=== PATIENT | male | born 1960 | race Caucasian/White ===

== ENCOUNTER → 2019-04-14 | Outpatient (CLI) | payer MEDICARE ==
[~2019-04-14] MED LIST: AMOXICILLIN500 MG PO; VICODIN ES 7501 TAB PO
== END | disposition home or self-care (01) ==
LOC: LAB 09:11
DX: E78.5 Hyperlipidemia, unspecified (principal); R53.83 Other fatigue; R79.89 Other specified abnormal findings of blood chemistry

== ENCOUNTER 2019-11-22 15:51 | Emergency (ER) | payer MEDICARE ==
[~2019-11-22] VITALS: Wt 83.9 kg
[2019-11-22 17:05] LABS: BASO # 0.1 10*3/uL (0.0-0.1); EOS # 0.1 10*3/uL (0.0-0.4); EOS % 2.1 % (1.0-4.0); HEMATOCRIT 44.6 % (42.0-52.0); LYMPH # 1.5 10*3/uL (1.3-4.4); LYMPH % 22.4 % (27.0-41.0); MEAN CELL VOLUME 91.4 fl (80.0-94.0); MEAN CORPUSCULAR HGB 31.4 pg (27.0-31.0); MEAN CORPUSCULAR HGB CONC 34.3 g/dl (33.0-37.0); MEAN PLATELET VOLUME 10.5 fl (9.6-12.3); MONO # 0.9 10*3/uL (0.1-1.0); MONO % 12.9 % (3.0-9.0); NEUT # 4.1 10*3/uL (2.3-7.9); NEUT % 61.3 % (47.0-73.0); PLATELET COUNT AUTOMATED 151 10*3/uL (130-400); RED BLOOD COUNT 4.88 10*6/uL (4.50-5.90); RED CELL DISTRI WIDTH 13.1 % (0-14.5); WHITE BLOOD COUNT 6.7 10*3/uL (4.8-10.8)
[2019-11-22 17:23] LABS: ALBUMIN 3.7 gm/dl (3.1-4.5); ALKALINE PHOSPHATASE 68 U/L (45-117); BUN 16 mg/dl (7-24); CHLORIDE 102 mmol/L (98-107); CREATININE 1.26 mg/dL (0.70-1.30); POTASSIUM 3.9 mmol/L (3.5-5.1); SGOT/AST 50 IU/L (3-35); SGPT/ALT 80 U/L (12-78); SODIUM 135 mmol/L (136-145); TOTAL PROTEIN 7.8 gm/dL (6.4-8.2)
[2019-11-22] MEDS ORDERED: AUGMENTIN 875875 MG PO (20:01)
[2019-11-22] MEDS ORDERED: AUGMENTIN 875-875 MG PO (20:14)
== END 2019-11-22 20:22 | disposition home or self-care (01) ==
LOC: ED 15:51
PROVIDERS: Nurse Practitioner Family
DX: K11.20 Sialoadenitis, unspecified (principal); I10 Essential (primary) hypertension

== ENCOUNTER → 2020-05-19 | Outpatient (CLI) | payer MEDICARE, MEDICAID ==
[~2020-05-19] MED LIST changes: +AUGMENTIN 875-875 MG PO; +AUGMENTIN 875875 MG PO
== END | disposition home or self-care (01) ==
LOC: COVID19 12:14
PROVIDERS: ATTEND Internal Medicine
DX: U07.1 COVID-19 (principal)

== ENCOUNTER 2020-05-22 16:30 | Emergency (ER) | payer MEDICARE, MEDICAID ==
[~2020-05-22] VITALS: Ht 190.5 cm; Wt 124.7 kg
[2020-05-22 17:15] LABS: BASO % 0.5 % (0.0-1.0); EOS % 0.7 % (1.0-4.0); HEMATOCRIT 45.3 % (42.0-52.0); LYMPH # 1.7 10*3/uL (1.3-4.4); LYMPH % 31.6 % (27.0-41.0); MEAN CELL VOLUME 88.5 fl (80.0-94.0); MEAN CORPUSCULAR HGB 30.3 pg (27.0-31.0); MEAN CORPUSCULAR HGB CONC 34.2 g/dl (33.0-37.0); MEAN PLATELET VOLUME 10.1 fl (9.6-12.3); MONO # 0.9 10*3/uL (0.1-1.0); MONO % 16.1 % (3.0-9.0); NEUT # 2.8 10*3/uL (2.3-7.9); NEUT % 50.9 % (47.0-73.0); PLATELET COUNT AUTOMATED 149 10*3/uL (130-400); RED BLOOD COUNT 5.12 10*6/uL (4.50-5.90); RED CELL DISTRI WIDTH 12.9 % (0-14.5); WHITE BLOOD COUNT 5.5 10*3/uL (4.8-10.8)
[2020-05-22 17:26] LABS: ACT PARTIAL THROMBO TIME 25.2 SECONDS (20.0-32.1)
[2020-05-22 17:32] LABS: ALBUMIN 3.6 gm/dl (3.1-4.5); ALKALINE PHOSPHATASE 70 U/L (45-117); BUN 16 mg/dl (7-24); CHLORIDE 106 mmol/L (98-107); POTASSIUM 3.9 mmol/L (3.5-5.1); SGOT/AST 67 IU/L (3-35); SGPT/ALT 103 U/L (12-78); SODIUM 137 mmol/L (136-145); TOTAL PROTEIN 8.2 gm/dL (6.4-8.2)
[2020-05-22 17:46] LABS: TROPONIN I < 0.015 ng/ml (<0.045)
== END 2020-05-22 19:26 | disposition home or self-care (01) ==
LOC: ED 16:30
PROVIDERS: Internal Medicine
DX: U07.1 COVID-19 (principal); J18.9 Pneumonia, unspecified organism; I16.0 Hypertensive urgency; F31.9 Bipolar disorder, unspecified; Z79.899 Other long term (current) drug therapy

== ENCOUNTER 2022-05-28 14:14 | Emergency (ER) | payer OTHER, MEDICAID ==
[~2022-05-28] VITALS: Ht 190.5 cm; Wt 129.3 kg
[2022-05-28] MEDS ORDERED: NAPROXEN500 M1 PO (19:54)
[2022-05-28] MEDS ORDERED: COLCHICINE0.6 M1 PO (19:54)
== END 2022-05-28 20:27 | disposition home or self-care (01) ==
LOC: ED 14:14
DX: M10.072 Idiopathic gout, left ankle and foot (principal)

== ENCOUNTER 2023-08-27 22:01 | Inpatient (IN) | payer MEDICARE ==
[~2023-08-27] VITALS: Ht 193 cm; Wt 133.0 kg
[~2023-08-27 22:01] MED LIST changes: +COLCHICINE0.6 M1 PO; +NAPROXEN500 M1 PO
[2023-08-27 22:10] VITALS: BP 153/80
[2023-08-27] MEDS ORDERED: Ondansetron Hydrochloride 4 MG/2 ML VIAL IV ONE (22:30)
[2023-08-27] MEDS ORDERED: SODIUM CHLORIDE 0.9% 1,000 ML IV ONE (22:30)
[2023-08-27 23:14] LABS: BASO % 0.2 % (0.0-1.0); EOS # 0.1 10*3/uL (0.0-0.4); EOS % 0.7 % (1.0-4.0); LYMPH # 1.1 10*3/uL (1.3-4.4); LYMPH % 8.7 % (27.0-41.0); MEAN CELL VOLUME 91.6 fl (80.0-94.0); MEAN CORPUSCULAR HGB 30.2 pg (27.0-31.0); MEAN CORPUSCULAR HGB CONC 32.9 g/dl (33.0-37.0); MEAN PLATELET VOLUME 11.5 fl (9.6-12.3); MONO # 0.6 10*3/uL (0.1-1.0); MONO % 4.5 % (3.0-9.0); NEUT # 10.4 10*3/uL (2.3-7.9); NEUT % 85.7 % (47.0-73.0); PLATELET COUNT AUTOMATED 129 10*3/uL (130-400); RED BLOOD COUNT 5.24 10*6/uL (4.50-5.90); RED CELL DISTRI WIDTH 13.4 % (0-14.5); WHITE BLOOD COUNT 12.1 10*3/uL (4.8-10.8)
[2023-08-27 23:34] LABS: ALKALINE PHOSPHATASE 94 U/L (46-116); BUN 19 mg/dl (9-23); CHLORIDE 101 mmol/L (98-107); LIPASE 31 U/L (12-53); SGPT/ALT 46 U/L (5-49); TOTAL PROTEIN 8.2 gm/dL (6.0-8.0)
[2023-08-28] MEDS ORDERED: MORPHINE Sulfate 2 MG/ML SYR IV ONE (00:35)
[2023-08-28] MEDS ORDERED: SODIUM CHLORIDE 0.9% 1,000 ML IV ONE ×2 (01:30→16:00)
[2023-08-28] MEDS ORDERED: TAMSULOSIN HCL0.4 MG PO (02:18)
[2023-08-28] MEDS ORDERED: PANTOPRAZOLE SO20 MG PO (02:18)
[2023-08-28] MEDS ORDERED: NAPROXEN D/R500 MG PO (02:18)
[2023-08-28] MEDS ORDERED: METFORMIN XR500 MG PO (02:19)
[2023-08-28] MEDS ORDERED: MINIPRESS2 M2 PO (02:21)
[2023-08-28] MEDS ORDERED: LISINOPRIL40 MG PO (02:22)
[2023-08-28] MEDS ORDERED: OXCARBAZEPINE300 M1 PO (02:22)
[2023-08-28] MEDS ORDERED: CITALOPRAM40 MG PO (02:22)
[2023-08-28] MEDS ORDERED: HYDROCHLOROTHIA25 M1 PO (02:23)
[2023-08-28] MEDS ORDERED: JARDIANCE10 MG PO (02:23)
[2023-08-28] MEDS ORDERED: 'CLONIDINE0.1 MG PO (02:24)
[2023-08-28] MEDS ORDERED: SIMVASTATIN20 MG PO (02:25)
[2023-08-28] MEDS ORDERED: AMLODIPINE BESY10 MG PO (02:25)
[2023-08-28] MEDS ORDERED: Lopressor25 MG PO (02:25)
[2023-08-28] MEDS ORDERED: CEPHALEXIN500 M1 PO (02:26)
[2023-08-28] MEDS ORDERED: ALLEGRA ALLERGY60 M2 PO (02:26)
[2023-08-28] MEDS ORDERED: ASPIRIN ADULT L81 M1 PO (02:27)
[2023-08-28 04:34] VITALS: BP 138/79
[2023-08-28] MEDS ORDERED: ACETAMINOPHEN 650 MG SUPP R PRN (04:40)
[2023-08-28] MEDS ORDERED: MORPHINE Sulfate 2 MG/ML SYR IV PRN (04:40)
[2023-08-28] MEDS ORDERED: DEXTROSE 10 % IN WATER 250 ML IV PRN (04:40)
[2023-08-28] MEDS ORDERED: Metoclopramide Hydrochloride 10 MG/2 ML AMP IV PRN (04:50)
[2023-08-28] MEDS ORDERED: INSULIN LISPRO 1 UNIT/0.01 ML SQ SCH (07:30)
[2023-08-28 07:51] VITALS: BP 144/82
[2023-08-28] MEDS ORDERED: Enoxaparin Sodium 40 MG/0.4 ML SYR SC SCH (10:00)
[2023-08-28 11:00] VITALS: BP 161/77
[2023-08-28] MEDS ORDERED: Doxycycline Hyclate 100 MG in SODIUM CHLORIDE 0.9% 250 ML IV SCH (13:00)
[2023-08-28 16:00] VITALS: BP 145/74
[2023-08-28] MEDS ORDERED: Metoclopramide Hydrochloride 10 MG/2 ML AMP IV SCH (18:30)
[2023-08-28 20:00] VITALS: BP 133/68
[2023-08-28] MEDS ORDERED: REMERON30 M1 PO (20:49)
[2023-08-28] MEDS ORDERED: Metoclopramide Hydrochloride 5 MG TAB PO SCH (22:00)
[2023-08-28] MEDS ORDERED: SIMVASTATIN 20 MG TAB PO SCH (22:00)
[2023-08-28] MEDS ORDERED: Mirtazapine 15 MG TAB PO SCH (22:00)
[2023-08-28] MEDS ORDERED: Prazosin Hydrochloride 1 MG CAP PO SCH (22:00)
[2023-08-29] VITALS (7 sets, daily range): BP systolic 99–168; BP diastolic 47–79
[2023-08-29] MEDS ORDERED: Pantoprazole Sodium 40 MG VIAL IV SCH (06:00)
[2023-08-29] MEDS ORDERED: OZEMPIC1 MG/0.71 SQ (07:17)
[2023-08-29] MEDS ORDERED: KEFLEX 500 MG E2 CAP PO (07:18)
[2023-08-29 08:14] LABS: ALKALINE PHOSPHATASE 85 U/L (46-116); BUN 15 mg/dl (9-23); CHLORIDE 104 mmol/L (98-107); CHOLESTEROL 86 mg/dL (<200); LDL CHOLESTEROL 43 mg/dL (9-159); POTASSIUM 3.7 mmol/L (3.4-5.1); SGPT/ALT 35 U/L (5-49); TOTAL PROTEIN 7.7 gm/dL (6.0-8.0); TRIGLYCERIDES 89 mg/dl (<150)
[2023-08-29 08:30] LABS: BASO % 0.2 % (0.0-1.0); EOS # 0.2 10*3/uL (0.0-0.4)
[2023-08-29] MEDS ORDERED: Metoprolol Tartrate 25 MG TAB PO SCH (10:00)
[2023-08-29] MEDS ORDERED: amLODIPine besylate 10 MG TAB PO SCH (10:00)
[2023-08-29] MEDS ORDERED: Cholecalciferol 2,000 UNIT TABLET (50 MCG) PO SCH (10:00)
[2023-08-29] MEDS ORDERED: EMPAGLIFLOZIN 10 MG TABLET PO SCH (10:00)
[2023-08-29] MEDS ORDERED: CITALOPRAM 20 MG TAB PO SCH (10:00)
[2023-08-29] MEDS ORDERED: cloNIDine Hydrochloride 0.1 MG TAB PO SCH (10:00)
[2023-08-29] MEDS ORDERED: ASPIRIN, CHEWABLE 81 MG TAB PO SCH (10:00)
[2023-08-29] MEDS ORDERED: Tamsulosin Hydrochloride 0.4 MG CAP PO SCH (10:00)
[2023-08-29 10:03] LABS: EOS % 1.7 % (1.0-4.0); HEMATOCRIT 44.5 % (42.0-52.0); LYMPH # 1.3 10*3/uL (1.3-4.4); LYMPH % 13.2 % (27.0-41.0); MEAN CELL VOLUME 92.5 fl (80.0-94.0); MEAN CORPUSCULAR HGB 30.6 pg (27.0-31.0); MEAN PLATELET VOLUME 10.6 fl (9.6-12.3); MONO # 0.7 10*3/uL (0.1-1.0); MONO % 7.3 % (3.0-9.0); NEUT # 7.9 10*3/uL (2.3-7.9); NEUT % 77.3 % (47.0-73.0); PLATELET COUNT AUTOMATED 156 10*3/uL (130-400); RED BLOOD COUNT 4.81 10*6/uL (4.50-5.90); RED CELL DISTRI WIDTH 13.6 % (0-14.5); WHITE BLOOD COUNT 10.2 10*3/uL (4.8-10.8)
[2023-08-29] MEDS ORDERED: Metoclopramide Hydrochloride 5 MG TAB PO SCH (14:00)
[2023-08-29] MEDS ORDERED: ACETAMINOPHEN 325 MG TAB PO PRN (15:20)
[2023-08-29] MEDS ORDERED: SODIUM CHLORIDE 0.9% 1,000 ML IV ONE (17:45)
[2023-08-30] VITALS: BP 127/62
[2023-08-30 06:05] LABS: HEMATOCRIT 42.6 % (42.0-52.0); MEAN CORPUSCULAR HGB 30.7 pg (27.0-31.0); MEAN CORPUSCULAR HGB CONC 33.3 g/dl (33.0-37.0); MEAN PLATELET VOLUME 10.4 fl (9.6-12.3); RED BLOOD COUNT 4.63 10*6/uL (4.50-5.90); RED CELL DISTRI WIDTH 13.4 % (0-14.5); WHITE BLOOD COUNT 9.5 10*3/uL (4.8-10.8)
[2023-08-30 06:20] LABS: BUN 8 mg/dl (9-23); CHLORIDE 104 mmol/L (98-107); POTASSIUM 3.5 mmol/L (3.4-5.1)
[2023-08-30 07:36] LABS: MANUAL DIFF REFLEX YES; PLATELET COUNT AUTOMATED 141 10*3/uL (130-400)
[2023-08-30 07:42] LABS: BASOPHILS 1 % (0-1); PLATELET SUFFICIENCY NORMAL (NORMAL); TOTAL CELLS COUNTED 100 #CELLS
[2023-08-30 08:00] VITALS: BP 152/76
[2023-08-30 12:00] VITALS: BP 163/79
[2023-08-30 16:00] VITALS: BP 110/51
[2023-08-30 20:00] VITALS: BP 168/78
[2023-08-30] MEDS ORDERED: Acetaminophen/Hydrocodone 5 MG/325 MG TABLET PO PRN (22:20)
[2023-08-31] VITALS: BP 140/78
[2023-08-31 08:00] VITALS: BP 150/85
[2023-08-31] MEDS ORDERED: Piperacillin Sodium/Tazobact 50 ML IV SCH (08:00)
[2023-08-31 08:05] LABS: HEMATOCRIT 44.6 % (42.0-52.0); MEAN CELL VOLUME 91.4 fl (80.0-94.0); MEAN CORPUSCULAR HGB 30.3 pg (27.0-31.0); MEAN CORPUSCULAR HGB CONC 33.2 g/dl (33.0-37.0); MEAN PLATELET VOLUME 11.5 fl (9.6-12.3); RED BLOOD COUNT 4.88 10*6/uL (4.50-5.90); RED CELL DISTRI WIDTH 13.3 % (0-14.5); WHITE BLOOD COUNT 8.9 10*3/uL (4.8-10.8)
[2023-08-31 08:41] LABS: BUN 9 mg/dl (9-23); CHLORIDE 102 mmol/L (98-107); POTASSIUM 3.5 mmol/L (3.4-5.1)
[2023-08-31 09:07] LABS: MANUAL DIFF REFLEX YES; PLATELET COUNT AUTOMATED 131 10*3/uL (130-400)
[2023-08-31 09:10] LABS: ATYPICAL LYMPHS 2 % (0-0); PLATELET SUFFICIENCY NORMAL (NORMAL); TOTAL CELLS COUNTED 100 #CELLS
[2023-08-31] MEDS ORDERED: VANCOMYCIN/WATER FOR INJ (PEG) 400 ML IV SCH (10:00)
[2023-08-31 12:00] VITALS: BP 148/77
[2023-08-31 16:00] VITALS: BP 144/80
[2023-08-31 20:00] VITALS: BP 134/74
[2023-09-01] VITALS (8 sets, daily range): BP systolic 128–170; BP diastolic 57–89
[2023-09-01 06:27] LABS: HEMATOCRIT 41.9 % (42.0-52.0); MEAN CELL VOLUME 91.1 fl (80.0-94.0); MEAN CORPUSCULAR HGB 30.4 pg (27.0-31.0); MEAN CORPUSCULAR HGB CONC 33.4 g/dl (33.0-37.0); MEAN PLATELET VOLUME 11.3 fl (9.6-12.3); RED CELL DISTRI WIDTH 13.4 % (0-14.5); WHITE BLOOD COUNT 11.1 10*3/uL (4.8-10.8)
[2023-09-01 06:32] LABS: MANUAL DIFF REFLEX YES; PLATELET COUNT AUTOMATED 158 10*3/uL (130-400)
[2023-09-01 06:57] LABS: BUN 9 mg/dl (9-23); CHLORIDE 106 mmol/L (98-107); POTASSIUM 3.3 mmol/L (3.4-5.1)
[2023-09-01 07:12] LABS: BURR CELLS FEW; PLATELET SUFFICIENCY NORMAL (NORMAL); POLYCHROMASIA SLIGHT; TOTAL CELLS COUNTED 100 #CELLS
[2023-09-01] MEDS ORDERED: CITALOPRAM 20 MG TAB PO SCH (10:00)
[2023-09-01] MEDS ORDERED: POTASSIUM CHLORIDE IN WATER 100 ML IV SCH (10:00)
[2023-09-01] MEDS ORDERED: PROPOFOL 200 MG/20 ML VIAL IV ONE (10:46)
[2023-09-01] MEDS ORDERED: SODIUM CHLORIDE 0.9% 500 ML IV ONE (10:50)
[2023-09-01] MEDS ORDERED: VANCOMYCIN/WATER FOR INJ (PEG) 400 ML IV SCH (16:00)
[2023-09-01] MEDS ORDERED: predniSONE 20 MG TAB PO SCH (18:00)
[2023-09-01] MEDS ORDERED: POTASSIUM CHLORIDE IN WATER 100 ML IV ONE (21:10)
[2023-09-02] VITALS: BP 134/69
[2023-09-02 06:22] LABS: BASO % 0.2 % (0.0-1.0); LYMPH % 8.7 % (27.0-41.0); MEAN CELL VOLUME 92.1 fl (80.0-94.0); MEAN CORPUSCULAR HGB 30.4 pg (27.0-31.0); MEAN PLATELET VOLUME 11.3 fl (9.6-12.3); MONO # 0.5 10*3/uL (0.1-1.0); MONO % 4.7 % (3.0-9.0); NEUT # 9.6 10*3/uL (2.3-7.9); PLATELET COUNT AUTOMATED 126 10*3/uL (130-400); RED BLOOD COUNT 4.67 10*6/uL (4.50-5.90); RED CELL DISTRI WIDTH 13.6 % (0-14.5); WHITE BLOOD COUNT 11.2 10*3/uL (4.8-10.8)
[2023-09-02 06:53] LABS: ALKALINE PHOSPHATASE 65 U/L (46-116); BUN 12 mg/dl (9-23); CHLORIDE 106 mmol/L (98-107); POTASSIUM 3.9 mmol/L (3.4-5.1); SGPT/ALT 22 U/L (5-49); TOTAL PROTEIN 7.8 gm/dL (6.0-8.0); URIC ACID 3.3 mg/dL (3.7-9.2)
[2023-09-02 08:00] VITALS: BP 143/70
[2023-09-02] MEDS ORDERED: PROPOFOL 200 MG/20 ML VIAL IV ONE (10:49)
[2023-09-02] MEDS ORDERED: Midazolam Hydrochloride 2 MG/2 ML VIAL IV ONE (11:05)
[2023-09-02 11:56] VITALS: BP 147/78
[2023-09-02 13:07] LABS: ACID FAST SPEC PROCESSING Tissue Grinding (.)
[2023-09-02 16:00] VITALS: BP 140/74
[2023-09-02 20:00] VITALS: BP 130/69
[2023-09-03] VITALS: BP 148/82
[2023-09-03 05:44] LABS: BUN 10 mg/dl (9-23)
[2023-09-03 05:57] LABS: HEMATOCRIT 41.4 % (42.0-52.0); MEAN CELL VOLUME 90.8 fl (80.0-94.0); MEAN CORPUSCULAR HGB 30.5 pg (27.0-31.0); MEAN CORPUSCULAR HGB CONC 33.6 g/dl (33.0-37.0); MEAN PLATELET VOLUME 10.7 fl (9.6-12.3); RED BLOOD COUNT 4.56 10*6/uL (4.50-5.90); RED CELL DISTRI WIDTH 13.5 % (0-14.5); WHITE BLOOD COUNT 11.4 10*3/uL (4.8-10.8)
[2023-09-03 06:04] LABS: MANUAL DIFF REFLEX YES
[2023-09-03 07:10] LABS: BURR CELLS MODERATE; PLATELET COUNT AUTOMATED 187 10*3/uL (130-400); PLATELET SUFFICIENCY NORMAL (NORMAL); TOTAL CELLS COUNTED 100 #CELLS
[2023-09-03 08:00] VITALS: BP 152/83
[2023-09-03 12:00] VITALS: BP 162/88
[2023-09-03 16:00] VITALS: BP 137/72
[2023-09-03] MEDS ORDERED: predniSONE 20 MG TAB PO SCH (18:00)
[2023-09-03 20:00] VITALS: BP 138/78
[2023-09-03] MEDS ORDERED: DALVANCE500 MG IV (22:42)
[2023-09-03] MEDS ORDERED: AUGMENTIN 500500 M1 PO (22:42)
[2023-09-04] VITALS: BP 158/72
[2023-09-04 08:00] VITALS: BP 154/88
[2023-09-04] MEDS ORDERED: DALVANCE500 MG IV (08:03)
[2023-09-04] MEDS ORDERED: LISINOPRIL 40 MG TAB PO SCH (10:00)
[2023-09-04] MEDS ORDERED: HYDROCHLOROTHIAZIDE 25 MG TAB PO SCH (10:00)
[2023-09-04 12:00] VITALS: BP 152/84
[2023-09-04 16:00] VITALS: BP 127/57
[2023-09-04 20:00] VITALS: BP 150/80
[2023-09-05] VITALS: BP 153/70
[2023-09-05 08:00] VITALS: BP 143/83
[2023-09-05 12:00] VITALS: BP 140/78
[2023-09-05 16:00] VITALS: BP 140/83
[2023-09-05 20:00] VITALS: BP 154/87
[2023-09-06] VITALS: BP 141/71
[2023-09-06 08:00] VITALS: BP 160/90
[2023-09-06 12:00] VITALS: BP 134/85
[2023-09-06] MEDS ORDERED: VITAMIN D350 MCG PO (12:39)
[2023-09-06] MEDS ORDERED: AMMONIUM LACTATE 12% LOTION T SCH (18:00)
== END 2023-09-06 14:50 | disposition home or self-care (01) | DRG 629 ==
LOC: ED 22:01 → 4E 08-28 04:28 → EDHOLD 08-28 04:28 → 4E 08-28 09:41
PROVIDERS: Internal Medicine; Occupational Therapist; Podiatrist; Student in an Organized Health Care Education/Training Program; ADMIT Family Medicine; ATTEND Family Medicine
PROC: 0D9670Z Drainage of Stomach with Drainage Device, Via Natural or Artificial Opening (ICD-10-PCS; 2023-08-28)
PROC: 0QBR0ZZ Excision of Left Toe Phalanx, Open Approach (ICD-10-PCS; principal; 2023-09-01)
PROC: 02HV33Z Insertion of Infusion Device into Superior Vena Cava, Percutaneous Approach (ICD-10-PCS; 2023-09-03)
PROC: B548ZZA Ultrasonography of Superior Vena Cava, Guidance (ICD-10-PCS; 2023-09-03)
DX: E11.69 Type 2 diabetes mellitus with other specified complication (principal); E87.1 Hypo-osmolality and hyponatremia; K31.1 Adult hypertrophic pyloric stenosis; M86.172 Other acute osteomyelitis, left ankle and foot; L03.032 Cellulitis of left toe; N17.0 Acute kidney failure with tubular necrosis; E11.43 Type 2 diabetes mellitus with diabetic autonomic (poly)neuropathy; E11.22 Type 2 diabetes mellitus with diabetic chronic kidney disease; I12.9 Hypertensive chronic kidney disease with stage 1 through stage 4 chronic kidney disease, or unspecified chronic kidney disease; N18.9 Chronic kidney disease, unspecified; E78.5 Hyperlipidemia, unspecified; K59.00 Constipation, unspecified; E11.621 Type 2 diabetes mellitus with foot ulcer; L97.529 Non-pressure chronic ulcer of other part of left foot with unspecified severity; E11.65 Type 2 diabetes mellitus with hyperglycemia; E55.9 Vitamin D deficiency, unspecified; E11.42 Type 2 diabetes mellitus with diabetic polyneuropathy; Z20.822 Contact with and (suspected) exposure to COVID-19; K31.84 Gastroparesis; Z79.899 Other long term (current) drug therapy; Z79.01 Long term (current) use of anticoagulants; Z79.2 Long term (current) use of antibiotics; Z79.84 Long term (current) use of oral hypoglycemic drugs; Z79.82 Long term (current) use of aspirin; Z79.4 Long term (current) use of insulin

== ENCOUNTER → 2023-09-07 | Outpatient (CLI) | payer MEDICARE ==
[~2023-09-07] MED LIST changes: +'CLONIDINE0.1 MG PO; +ALLEGRA ALLERGY60 M2 PO; +AMLODIPINE BESY10 MG PO; +ASPIRIN ADULT L81 M1 PO; +AUGMENTIN 500500 M1 PO; +CEPHALEXIN500 M1 PO; +CITALOPRAM40 MG PO; +DALVANCE500 MG IV; +HYDROCHLOROTHIA25 M1 PO; +JARDIANCE10 MG PO; +KEFLEX 500 MG E2 CAP PO; +LISINOPRIL40 MG PO; +Lopressor25 MG PO; +METFORMIN XR500 MG PO; +MINIPRESS2 M2 PO; +NAPROXEN D/R500 MG PO; +OXCARBAZEPINE300 M1 PO; +OZEMPIC1 MG/0.71 SQ; +PANTOPRAZOLE SO20 MG PO; +REMERON30 M1 PO; +SIMVASTATIN20 MG PO; +TAMSULOSIN HCL0.4 MG PO; +VITAMIN D350 MCG PO
[2023-09-07 13:16] LABS: BASO # 0.1 10*3/uL (0.0-0.1); BASO % 0.9 % (0.0-1.0); EOS # 0.2 10*3/uL (0.0-0.4); EOS % 1.5 % (1.0-4.0); HEMATOCRIT 46.9 % (42.0-52.0); LYMPH # 2.5 10*3/uL (1.3-4.4); LYMPH % 19.7 % (27.0-41.0); MEAN CELL VOLUME 90.9 fl (80.0-94.0); MEAN CORPUSCULAR HGB 30.2 pg (27.0-31.0); MEAN CORPUSCULAR HGB CONC 33.3 g/dl (33.0-37.0); MEAN PLATELET VOLUME 10.9 fl (9.6-12.3); MONO # 1.1 10*3/uL (0.1-1.0); MONO % 8.5 % (3.0-9.0); NEUT # 8.7 10*3/uL (2.3-7.9); NEUT % 68.2 % (47.0-73.0); PLATELET COUNT AUTOMATED 186 10*3/uL (130-400); RED BLOOD COUNT 5.16 10*6/uL (4.50-5.90); RED CELL DISTRI WIDTH 13.8 % (0-14.5); WHITE BLOOD COUNT 12.8 10*3/uL (4.8-10.8)
[2023-09-07 13:44] LABS: ALKALINE PHOSPHATASE 74 U/L (46-116); BUN 18 mg/dl (9-23); CHLORIDE 99 mmol/L (98-107); POTASSIUM 3.8 mmol/L (3.4-5.1); SGPT/ALT 61 U/L (5-49); TOTAL PROTEIN 8.3 gm/dL (6.0-8.0)
== END | disposition home or self-care (01) ==
LOC: LAB 13:00
PROVIDERS: ATTEND Registered Nurse
DX: M86.9 Osteomyelitis, unspecified (principal)

== ENCOUNTER → 2023-09-27 | Outpatient (CLI) | payer MEDICARE ==
[2023-09-27 13:46] LABS: BASO # 0.1 10*3/uL (0.0-0.1); BASO % 0.7 % (0.0-1.0); EOS # 0.2 10*3/uL (0.0-0.4); EOS % 3.5 % (1.0-4.0); HEMATOCRIT 44.4 % (42.0-52.0); LYMPH # 1.9 10*3/uL (1.3-4.4); MEAN CELL VOLUME 91.9 fl (80.0-94.0); MEAN CORPUSCULAR HGB 30.2 pg (27.0-31.0); MEAN CORPUSCULAR HGB CONC 32.9 g/dl (33.0-37.0); MONO # 0.6 10*3/uL (0.1-1.0); MONO % 9.1 % (3.0-9.0); NEUT % 58.4 % (47.0-73.0); PLATELET COUNT AUTOMATED 149 10*3/uL (130-400); RED BLOOD COUNT 4.83 10*6/uL (4.50-5.90); RED CELL DISTRI WIDTH 13.4 % (0-14.5); WHITE BLOOD COUNT 6.9 10*3/uL (4.8-10.8)
== END | disposition home or self-care (01) ==
LOC: LAB 13:33
PROVIDERS: Student in an Organized Health Care Education/Training Program; ATTEND Family Medicine
DX: D72.829 Elevated white blood cell count, unspecified (principal)

== ENCOUNTER → 2023-11-08 | Day surgery (SDC) | payer MEDICARE ==
[~2023-11-08] VITALS: Ht 193 cm; Wt 127.9 kg
[~2023-11-08] MED LIST changes: +Ketamine Hydrochloride 500 MG/10 ML VIAL IV ONE; +Lidocaine Hydrochloride 2% 10 ML AMP IM ONE; +Midazolam Hydrochloride 2 MG/2 ML VIAL IV ONE; +Midazolam Hydrochloride 2 MG/2 ML VIAL IV STA; +PROPOFOL 200 MG/20 ML VIAL IV ONE; +SODIUM CHLORIDE 0.9% 1,000 ML IV ONE; +SODIUM CHLORIDE 0.9% 1,000 ML IV SCH
[2023-11-08 10:05] VITALS: BP 157/91
[2023-11-08 12:14] VITALS: BP 145/77
[2023-11-08 12:29] VITALS: BP 146/78
[2023-11-08 12:44] VITALS: BP 151/81
== END | disposition home or self-care (01) ==
LOC: SDC 11-04 08:45
PROVIDERS: ATTEND Surgery
DX: R11.0 Nausea (principal); D12.8 Benign neoplasm of rectum; K21.9 Gastro-esophageal reflux disease without esophagitis; K29.50 Unspecified chronic gastritis without bleeding; D49.1 Neoplasm of unspecified behavior of respiratory system; K31.84 Gastroparesis; I10 Essential (primary) hypertension; E11.9 Type 2 diabetes mellitus without complications; E78.00 Pure hypercholesterolemia, unspecified; G47.30 Sleep apnea, unspecified; F31.9 Bipolar disorder, unspecified; Z98.890 Other specified postprocedural states; Z79.82 Long term (current) use of aspirin; Z79.899 Other long term (current) drug therapy; Z79.84 Long term (current) use of oral hypoglycemic drugs

== ENCOUNTER 2024-02-09 12:58 | Emergency (ER) | payer OTHER, MEDICARE ==
[~2024-02-09] VITALS: Wt 127.0 kg
[~2024-02-09 12:58] MED LIST changes: -Ketamine Hydrochloride 500 MG/10 ML VIAL IV ONE; -Lidocaine Hydrochloride 2% 10 ML AMP IM ONE; -Midazolam Hydrochloride 2 MG/2 ML VIAL IV ONE; -Midazolam Hydrochloride 2 MG/2 ML VIAL IV STA; -PROPOFOL 200 MG/20 ML VIAL IV ONE; -SODIUM CHLORIDE 0.9% 1,000 ML IV ONE; -SODIUM CHLORIDE 0.9% 1,000 ML IV SCH
[2024-02-09] MEDS ORDERED: MORPHINE Sulfate 2 MG/ML SYR IV ONE (13:25)
[2024-02-09] MEDS ORDERED: IOHEXOL 300 MG/ML 100 ML VIAL IV ONE (13:25)
[2024-02-09 13:35] LABS: BASO # 0.1 10*3/uL (0.0-0.1); BASO % 0.8 % (0.0-1.0); EOS # 0.1 10*3/uL (0.0-0.4); EOS % 1.6 % (1.0-4.0); HEMATOCRIT 42.4 % (42.0-52.0); LYMPH # 1.7 10*3/uL (1.3-4.4); LYMPH % 23.7 % (27.0-41.0); MEAN CELL VOLUME 88.7 fl (80.0-94.0); MEAN CORPUSCULAR HGB CONC 34.9 g/dl (33.0-37.0); MEAN PLATELET VOLUME 10.1 fl (9.6-12.3); MONO # 0.6 10*3/uL (0.1-1.0); MONO % 7.5 % (3.0-9.0); NEUT # 4.8 10*3/uL (2.3-7.9); NEUT % 66.3 % (47.0-73.0); PLATELET COUNT AUTOMATED 192 10*3/uL (130-400); RED BLOOD COUNT 4.78 10*6/uL (4.50-5.90); RED CELL DISTRI WIDTH 14.2 % (0-14.5); WHITE BLOOD COUNT 7.3 10*3/uL (4.8-10.8)
[2024-02-09 13:44] LABS: ACT PARTIAL THROMBO TIME 26.8 SECONDS (20.0-32.1)
[2024-02-09 13:55] LABS: ALKALINE PHOSPHATASE 69 U/L (46-116); BUN 17 mg/dl (9-23); CHLORIDE 102 mmol/L (98-107); POTASSIUM 3.9 mmol/L (3.4-5.1); SGPT/ALT 60 U/L (5-49); TOTAL PROTEIN 7.2 gm/dL (6.0-8.0)
[2024-02-09] MEDS ORDERED: ASPERCREME LID1 EACH T (16:27)
[2024-02-09] MEDS ORDERED: MIRALAX POWDER17 G1 PO (16:27)
[2024-02-09] MEDS ORDERED: TYLENOL EXTRA500 MG PO (16:27)
[2024-02-09] MEDS ORDERED: MORPHINE SULFAT15 MG PO (16:27)
== END 2024-02-09 16:58 | disposition home or self-care (01) ==
LOC: ED 12:58
PROVIDERS: Emergency Medicine
DX: S30.91XA Unspecified superficial injury of lower back and pelvis, initial encounter (principal); I48.91 Unspecified atrial fibrillation; M50.23 Other cervical disc displacement, cervicothoracic region; I10 Essential (primary) hypertension; E11.9 Type 2 diabetes mellitus without complications; F17.200 Nicotine dependence, unspecified, uncomplicated; Z79.899 Other long term (current) drug therapy; Z79.84 Long term (current) use of oral hypoglycemic drugs; Z79.82 Long term (current) use of aspirin; Z89.422 Acquired absence of other left toe(s); V43.53XA Car driver injured in collision with pick-up truck in traffic accident, initial encounter; Y93.89 Activity, other specified; Y92.89 Other specified places as the place of occurrence of the external cause; Y99.8 Other external cause status

== ENCOUNTER → 2024-02-12 | Outpatient (CLI) | payer OTHER, MEDICARE ==
[~2024-02-12] MED LIST changes: +ASPERCREME LID1 EACH T; +MIRALAX POWDER17 G1 PO; +MORPHINE SULFAT15 MG PO; +TYLENOL EXTRA500 MG PO
== END | disposition home or self-care (01) ==
LOC: RAD 10:36
PROVIDERS: ATTEND Family Medicine
DX: S22.42XA Multiple fractures of ribs, left side, initial encounter for closed fracture (principal); S23.41XA Sprain of ribs, initial encounter; X58.XXXA Exposure to other specified factors, initial encounter; Y93.89 Activity, other specified; Y92.89 Other specified places as the place of occurrence of the external cause; Y99.8 Other external cause status

== ENCOUNTER → 2024-02-22 | Outpatient (CLI) | payer OTHER, MEDICARE ==
[2024-02-22 11:26] LABS: ALKALINE PHOSPHATASE 78 U/L (46-116); BUN 15 mg/dl (9-23); CHLORIDE 100 mmol/L (98-107); POTASSIUM 3.8 mmol/L (3.4-5.1); SGPT/ALT 29 U/L (5-49); TOTAL PROTEIN 8.1 gm/dL (6.0-8.0)
== END | disposition home or self-care (01) ==
LOC: MRI 01:55
PROVIDERS: ATTEND Family Medicine
DX: M47.812 Spondylosis without myelopathy or radiculopathy, cervical region (principal); R74.8 Abnormal levels of other serum enzymes

== ENCOUNTER → 2024-03-08 | Outpatient (CLI) | payer MEDICARE | END | disposition home or self-care (01) | LOC: RAD 10:51 | PROVIDERS: ATTEND Family Medicine | DX: M19.071 Primary osteoarthritis, right ankle and foot (principal); M86.8X7 Other osteomyelitis, ankle and foot; L97.519 Non-pressure chronic ulcer of other part of right foot with unspecified severity; M79.89 Other specified soft tissue disorders; M20.11 Hallux valgus (acquired), right foot ==

== ENCOUNTER → 2024-03-16 | Outpatient (CLI) | payer MEDICARE ==
[2024-03-16 11:39] LABS: BASO # 0.1 10*3/uL (0.0-0.1); BASO % 1.1 % (0.0-1.0); EOS # 0.2 10*3/uL (0.0-0.4); EOS % 2.8 % (1.0-4.0); HEMATOCRIT 46.5 % (42.0-52.0); LYMPH % 26.9 % (27.0-41.0); MEAN CELL VOLUME 90.1 fl (80.0-94.0); MEAN CORPUSCULAR HGB 29.8 pg (27.0-31.0); MEAN CORPUSCULAR HGB CONC 33.1 g/dl (33.0-37.0); MEAN PLATELET VOLUME 10.4 fl (9.6-12.3); MONO # 0.5 10*3/uL (0.1-1.0); NEUT # 4.6 10*3/uL (2.3-7.9); NEUT % 61.9 % (47.0-73.0); PLATELET COUNT AUTOMATED 187 10*3/uL (130-400); RED BLOOD COUNT 5.16 10*6/uL (4.50-5.90); RED CELL DISTRI WIDTH 13.5 % (0-14.5); WHITE BLOOD COUNT 7.5 10*3/uL (4.8-10.8)
== END | disposition home or self-care (01) ==
LOC: LAB 10:50
PROVIDERS: ATTEND Family Medicine
DX: L97.519 Non-pressure chronic ulcer of other part of right foot with unspecified severity (principal)

== ENCOUNTER → 2025-03-20 | Outpatient (CLI) | payer MEDICARE | END | disposition home or self-care (01) | LOC: LAB 09:47 | PROVIDERS: ATTEND Family Medicine | DX: R74.01 Elevation of levels of liver transaminase levels (principal); R93.5 Abnormal findings on diagnostic imaging of other abdominal regions, including retroperitoneum ==

== ENCOUNTER → 2025-03-28 | Outpatient (CLI) | payer MEDICARE ==
[2025-03-29 14:08] LABS: HEPATITIS C QUANTITATION HCV Not Detected IU/mL (.)
== END | disposition home or self-care (01) ==
LOC: LAB 08:14
PROVIDERS: ATTEND Family Medicine
DX: B19.20 Unspecified viral hepatitis C without hepatic coma (principal)

== ENCOUNTER → 2025-04-24 | Outpatient (CLI) | payer MEDICARE | END | disposition home or self-care (01) | LOC: US 04-10 08:00 | PROVIDERS: ATTEND Family Medicine | DX: K76.0 Fatty (change of) liver, not elsewhere classified (principal); R16.0 Hepatomegaly, not elsewhere classified; N28.89 Other specified disorders of kidney and ureter; R74.01 Elevation of levels of liver transaminase levels ==